=== PATIENT | male | born 1960 | race Caucasian/White ===

== ENCOUNTER 2022-01-20 16:56 | Emergency (ER) | payer OTHER ==
[~2022-01-20] VITALS: Ht 170.2 cm; Wt 85.0 kg
[2022-01-20 18:17] LABS: BASOPHILS % 0.8 % (0.0-2.0); EOSINOPHILS % 6.3 % (0.0-5.0); HEMATOCRIT. 45.3 % (42.0-52.0); HEMOGLOBIN. 15.6 g/dL (14.0-18.0); LYMPHOCYTES % 21.8 % (20.0-50.0); MEAN CORPUSCULAR HEMOGLOBIN 29.6 pg (28.0-32.0); MEAN CORPUSCULAR VOLUME 85.8 fL (80.0-94.0); MEAN PLATELET VOLUME 8.3 fl (7.4-10.4); MONOCYTES % 7.6 % (2.0-8.0); NEUTROPHILS % 63.5 % (40.0-76.0); PLATELET 242 x1000/uL (130-400); RED BLOOD CELL COUNT 5.28 mill/uL (4.7-6.1); RED CELL DISTRIBUTION WIDTH 13.9 % (11.6-14.6)
[2022-01-20 18:30] LABS: CHLORIDE 106 mEq/L (98-107)
[2022-01-20] MEDS ORDERED: ONDANSETRON HCL 4MG/2ML INJ IV STA (18:44)
[2022-01-20] MEDS ORDERED: KETOROLAC 30MG/ML VIAL IV STA (18:44)
[2022-01-20] MEDS ORDERED: SODIUM CHLORIDE 0.9% 1,000 ML IV ONE (18:45)
[2022-01-20 21:00] VITALS: BP 126/92
[2022-01-20] MEDS ORDERED: ONDANSETRON HCL 4MG/2ML INJ IV NR (21:00)
[2022-01-20] MEDS ORDERED: KETOROLAC 30MG/ML VIAL IV NR (21:00)
[2022-01-20] MEDS ORDERED: ONDA4TAB50 MT (22:53)
== END 2022-01-20 23:50 | disposition home or self-care (01) ==
LOC: ER 16:56
DX: R53.1 Weakness (principal); R42 Dizziness and giddiness; R11.2 Nausea with vomiting, unspecified
CPT/HCPCS: 36415; 80053; 85025; 96374; 96375; 99284; J1885; J2405; J7030